=== PATIENT | female | born 1940 | race Caucasian/White ===

== ENCOUNTER → 2024-03-03 13:11 | Outpatient (REF) | payer MEDICARE, BC, SELFPAY | LOC: WDC 13:11 | PROVIDERS: ATTENDING PHYSICIAN Family Medicine | DX: Z12.31 Encounter for screening mammogram for malignant neoplasm of breast (principal); M81.0 Age-related osteoporosis without current pathological fracture | CPT/HCPCS: 77063; 77067; 77080 ==

== ENCOUNTER 2024-10-07 11:59 | Emergency (ER) | payer MEDICARE, SELFPAY ==
[2024-10-07 12:04] VITALS: BP 163/102
--- NOTE | 2024-10-07 12:10 | ED.GENMED ---
ED Provider Triage
<Anish Rascon PA-C - Last Filed: 10/07/24 12:11>
-
Patient seen by provider in Triage?: Seen in Triage
83-year-old female presents with lower abdominal pain that radiates to the back with associated urinary symptoms. She has a history of UTIs. She has a history of diverticulitis. She denies nausea or vomiting. No measurable fever. No chest pain
or shortness of breath
Patient appears stable through triage. Will start workup with basic labs urinalysis and CT with IV contrast of the abdomen and pelvis
Seen by healthcare provider at triage but warrants further assessment
History of Present Illness
<Anish Rascon PA-C - Last Filed: 10/07/24 12:11>
General
Chief Complaint: Urinary Symptoms
Time Seen by Provider: 10/07/24 17:17
<Evi Diane DO - Last Filed: 10/07/24 18:33>
History of Present Illness
History of Present Illness:
83-year-old female without significant past medical history presenting for lower abdominal pain and back pain. Patient reports symptoms for the past 5 days. Reports similar symptoms about a year ago at which time she had a urinary tract infection.
Denies urinary symptoms, however does feel some fogginess. Denies chest pain or difficulty breathing. Denies fever. Does also report history of diverticulitis. Denies additional acute medical complaints.
Past History
<Anish Rascon PA-C - Last Filed: 10/07/24 12:11>
Past History
ED Past Medical History: HTN and Other (Diverticulitis, IBS, Macular degeneration)
ED Past Surgical History: None
Social History
Tobacco: Non-smoker
Alcohol: None
Personal:
Living: with family
Phy Exam
<Evi Diane DO - Last Filed: 10/07/24 18:33>
Physical Exam
Physical Exam:
General: Well-appearing, no clinical signs of dehydration, nontoxic and in no acute distress
HEENT: protecting airway
Neck: appears supple
CV: Normal heart rate, regular rhythm
Resp: No accessory muscle use, no increased work of breathing
Abd: Soft and non-distended, mild generalized tenderness to lower abdomen without rebound or, no erythema, pulses and sensation intact
Neuro: alert, no focal neurologic deficit
: deferred
Rectal: deferred
Psych: Normal affect
Skin: Intact
Course
<Anish Rascon PA-C - Last Filed: 10/07/24 12:11>
Orders/Labs/Results
Orders:
Orders
10/07/24 12:08
CT Abd/pelvis W Iv Cont Urgent
Comment:
Reason For Exam: back pain, urinary symptoms
10/07/24 12:23
Complete Blood Count/With Diff Urgent
Comprehensive Metabolic Panel Urgent
Lipase Urgent
10/07/24 12:24
Urinalysis Reflex To Culture Urgent
Date Specimen was Collected: 10/07/24
Time Specimen was Collected: 12:23
Urine Microscopic Reflex Cult Urgent
Urine Culture Urgent
YOSEF Source: U
Specimen Description:
Date Specimen was Collected: 10/07/24
Time Specimen was Collected: 12:23
10/07/24 18:00
Cephalexin Monohydrate [Keflex] 500 mg PO NOW STA
10/07/24 18:01
Cephalexin Monohydrate [Keflex] 500 mg PO NOW STA
Abnormal Lab Results
10/07/24 10/07/24
12:23 12:24
BUN 23 H mg/dl
(7-17)
Glucose 100 H mg/dl
(70-99)
Leukocyte Esterase Rfl 1+ A
(Negative)
Urine Bacteria (Reflex) Few A
(Negative)
10/07/24 12:23
10/07/24 12:23
Vital Signs
Initial and Last Documented VS:
Initial Vital Signs
Temp Pulse Resp BP Pulse Ox
98.1 F 70 18 163/102 97
10/07/24 12:04 10/07/24 12:04 10/07/24 12:04 10/07/24 12:04 10/07/24 12:04
Last Documented Vital Signs
Temp Pulse Resp BP Pulse Ox
98.1 F 66 18 172/88 95
10/07/24 16:03 10/07/24 16:03 10/07/24 16:03 10/07/24 16:03 10/07/24 16:03
<Evi Diane, DO - Last Filed: 10/07/24 18:33>
Orders/Labs/Results
Orders:
Orders
10/07/24 12:08
CT Abd/pelvis W Iv Cont Urgent
Comment:
Reason For Exam: back pain, urinary symptoms
10/07/24 12:23
Complete Blood Count/With Diff Urgent
Comprehensive Metabolic Panel Urgent
Lipase Urgent
10/07/24 12:24
Urinalysis Reflex To Culture Urgent
Date Specimen was Collected: 10/07/24
Time Specimen was Collected: 12:23
Urine Microscopic Reflex Cult Urgent
Urine Culture Urgent
YOSEF Source: U
Specimen Description:
Date Specimen was Collected: 10/07/24
Time Specimen was Collected: 12:23
10/07/24 18:00
Cephalexin Monohydrate [Keflex] 500 mg PO NOW STA
10/07/24 18:01
Cephalexin Monohydrate [Keflex] 500 mg PO NOW STA
Abnormal Lab Results
10/07/24 10/07/24
12:23 12:24
BUN 23 H mg/dl
(7-17)
Glucose 100 H mg/dl
(70-99)
Leukocyte Esterase Rfl 1+ A
(Negative)
Urine Bacteria (Reflex) Few A
(Negative)
10/07/24 12:23
10/07/24 12:23
Vital Signs
Initial and Last Documented VS:
Initial Vital Signs
Temp Pulse Resp BP Pulse Ox
98.1 F 70 18 163/102 97
10/07/24 12:04 10/07/24 12:04 10/07/24 12:04 10/07/24 12:04 10/07/24 12:04
Last Documented Vital Signs
Temp Pulse Resp BP Pulse Ox
98.1 F 66 18 172/88 95
10/07/24 16:03 10/07/24 16:03 10/07/24 16:03 10/07/24 16:03 10/07/24 16:03
<Evi Diane DO - Last Filed: 10/07/24 18:33>
MDM/Problems Addressed
MDM/Problems Addressed:
83-year-old female presenting with lower abdominal pain lower back pain for a week. Vital signs are significant for mild hypertension.
On exam patient is well-appearing, resting comfortably, nontoxic and in no acute distress. On exam, no significant tenderness to the abdomen. No tenderness to the lower back. Patient had workup prior to my assessment, provider in triage. Patient
had laboratory analysis, urinalysis, CT abdomen and pelvis. Labs unremarkable, urine does show evidence of infection which could be contributing to patient's symptoms. Notes similar symptoms in the past and did have a urine infection.
Incidentally, noted to have fluid-filled thickening in the endometrial cavity, abnormal in the postmenopausal female. Do not suspect etiology of patient's pain, however will require interval follow-up with gynecology for rule out malignancy. Will
start patient on antibiotic, otherwise feel hemodynamically stable for discharge. Return precautions discussed and patient verbalized understanding
<Evi Davala, DO - Last Filed: 10/07/24 18:33>
*Critical Care Note
Total Time (30-74mins, 75-104mins- exclusive of procedures): Not Applicable
ED Attending Note
<Anish Rascon PA-C - Last Filed: 10/07/24 12:11>
-
Portions of this chart may have been created with voice recognition software.� Occasional wrong word or��sound alike� substitutions may have occurred due to the inherent limitations of voice recognition software.
Discharge Plan
Departure
Patient Disposition: Home (Routine Discharge)
Date of Disposition: 10/07/24
Time of Disposition: 18:14
Patient with high blood pressure during this ER visit?: Yes
Condition: Good
Discharge Problem:
Urinary tract infection, Abdominal pain
Instructions: Urinary Tract Infection, Adult (DC), BLOOD PRESSURE
Prescriptions:
New
cephalexin 500 mg capsule
500 mg PO Q12H 7 Days Qty: 14 0RF
No Action
Acidophilus
calcium carbonate [calcium] 500 MG tablet
500 mg PO DAILY
Enzymes,Digestive
1 tab PO DAILY
Multi Oil
1 tab PO DAILY
Women's Multi Capsule
1 tab PO DAILY
levofloxacin 500 MG tablet
500 mg PO DAILY Qty: 9 0RF
metronidazole 500 MG tablet
500 mg PO TID Qty: 29 0RF
hydrochlorothiazide 12.5 MG tablet
12.5 mg PO DAILY Qty: 30 0RF
sulfamethoxazole-trimethoprim [Bactrim DS] 800-160 mg tablet
1 tab PO BID Qty: 14 0RF
Referrals:
Liset Nelson DO [Active] -
UNKNOWN - PT NOT,INTERVIEWE [Family Provider] -
Activity Restrictions/Additional Instructions:
You were seen in the emergency department for abdominal pain
You were found to have a urinary tract infection. Additionally you had a CT scan of your abdomen that showed thickening of your endometrium, which is abnormal in a postmenopausal female. Recommendation is for outpatient gynecologic follow-up to
ensure no additional acute abnormality such as endometrial cancer. Please take your antibiotics as directed for your urine infection
Please follow-up closely with your primary care physician.
Return to the emergency department for any worsening of your symptoms, or any development of chest pain, difficulty breathing, abdominal pain with persistent vomiting and inability to tolerate food or liquid by mouth (concern for dehydration),
weakness, headache or confusion, fever greater than 100.4, or any additional symptoms that are concerning to you.
Thank you for choosing [facility].
Interventions
Interventions:
*Risk Screen - Suicide Last Done: 10/07/24 12:04
*General Assessment Last Done: 10/07/24 12:04
*ED COVID-19 Vaccine History Last Done: 10/07/24 12:04
Discharge Date and Time
Print Language: SPANISH
[2024-10-07 12:36] LABS: % Basophils 0.2 % (0-2); % Eosinophils 1.3 % (0-6); % Immature Granulocytes 0.2 % (0-0.5); % Lymphocytes 25.4 % (20.5-51.1); % Monocytes 7.5 % (1.7-9.3); % Neutrophils 65.4 % (42.2-75.2); Absolute Eosinophils 0.1 10^3/uL (0-0.7); Absolute Lymphocytes 1.6 10^3/uL (1.2-3.4); Absolute Monocytes 0.5 10^3/uL (0.1-0.6); Hematocrit 40.8 % (37.0-47.0); Hemoglobin 13.9 g/dL (12.0-16.0); Mean Corp Hgb Conc. 34.1 g/dL (33.0-37.0); Mean Corpuscular Hgb 30.4 pg (27.0-31.0); Mean Corpuscular Volume 89.3 fL (81.0-99.0); Nucleated Red Blood Cells % 0 %; Platelet Count 202 10^3/uL (130-400); Red Blood Cell Count 4.57 10^6/uL (4.20-5.40); Red Cell Dist. Width 13.1 % (11.5-14.5); White Blood Cell Count 6.1 10^3/uL (4.8-10.8)
[2024-10-07 12:54] LABS: ALT (SGPT) 23 U/L (0-35); AST (SGOT) 28 U/L (14-36); Alkaline Phosphatase 87 U/L (38-126); Blood Urea Nitrogen 23 mg/dl (7-17); Calcium 9.3 mg/dl (8.4-10.2); Carbon Dioxide 28 mmol/L (22-30); Chloride 101 mmol/L (98-107); Glucose 100 mg/dl (70-99); Lipase 80 U/L (23-300); Potassium 4.4 mmol/L (3.5-5.1); Sodium 138 mmol/L (135-145); Total Bilirubin 0.9 mg/dl (0.2-1.3); Total Protein 6.4 g/dl (6.3-8.2); eGFR > 60.00
[2024-10-07 13:16] LABS: Urine Albumin Negative (Neg - Trace); Urine Bilirubin Negative (Negative); Urine Character Clear (Clear); Urine Color Yellow; Urine Glucose Negative (Negative); Urine Ketone Negative (Negative); Urine Leukocyte 1+ (Negative); Urine Nitrite Negative (Negative); Urine Occult Blood Negative (Negative); Urine Specific Gravity 1.025 (<1.030); Urine Urobilinogen Negative (Neg - 1+)
[2024-10-07 14:50] LABS: Urine Squamous Cell 0-2 /LPF (Few)
[2024-10-07 14:51] LABS: Urine Bacteria Few (Negative); Urine Red Blood Cell 0-2 /HPF (0-2)
[2024-10-07 16:03] VITALS: BP 172/88
[2024-10-07] MEDS: KEFLEX 500 MG PO ×2 (18:25→18:26)
== END 2024-10-07 18:35 | disposition home or self-care (01) ==
LOC: EMR 11:59
PROVIDERS: Physician Assistant; EMERGENCY PHYSICIAN Student in an Organized Health Care Education/Training Program
DX: N39.0 Urinary tract infection, site not specified (principal); R93.89 Abnormal findings on diagnostic imaging of other specified body structures; M54.50 Low back pain, unspecified; I10 Essential (primary) hypertension; K58.9 Irritable bowel syndrome, unspecified
CPT/HCPCS: 99284; 74177; 80053; 81003; 81015; 83690; 85025; 87086; Q9967

== ENCOUNTER → 2024-12-06 14:03 | Outpatient (REF) | payer MEDICARE, BC, SELFPAY | LOC: RAD 14:03 | PROVIDERS: ATTENDING PHYSICIAN Obstetrics & Gynecology; FAMILY PHYSICIAN Family Medicine | DX: R93.89 Abnormal findings on diagnostic imaging of other specified body structures (principal) | CPT/HCPCS: 76830; 76856 ==

== ENCOUNTER 2025-01-24 18:00 | Emergency (ER) | payer MEDICARE, BC, SELFPAY ==
[2025-01-24 18:03] VITALS: BP 185/88
[2025-01-24 19:38] LABS: % Basophils 0.2 % (0-2); % Eosinophils 1.3 % (0-6); % Immature Granulocytes 0.2 % (0-0.5); % Lymphocytes 24.7 % (20.5-51.1); % Monocytes 6.5 % (1.7-9.3); % Neutrophils 67.1 % (42.2-75.2); Absolute Eosinophils 0.1 10^3/uL (0-0.7); Absolute Lymphocytes 1.6 10^3/uL (1.2-3.4); Absolute Monocytes 0.4 10^3/uL (0.1-0.6); Absolute Neutrophils 4.2 10^3/uL (1.4-6.5); Hematocrit 42.8 % (37.0-47.0); Mean Corp Hgb Conc. 32.7 g/dL (33.0-37.0); Mean Corpuscular Hgb 29.9 pg (27.0-31.0); Mean Corpuscular Volume 91.5 fL (81.0-99.0); Mean Platelet Volume 10.2 fL (7.4-10.4); Nucleated Red Blood Cells % 0 %; Platelet Count 206 10^3/uL (130-400); Red Blood Cell Count 4.68 10^6/uL (4.20-5.40); Red Cell Dist. Width 13.3 % (11.5-14.5); White Blood Cell Count 6.3 10^3/uL (4.8-10.8)
[2025-01-24 20:00] LABS: NT-proBNP 371 pg/ml
[2025-01-24] MEDS: ADACEL 0.5 ML IM (22:10)
--- NOTE | 2025-01-24 22:38 | ED.GENMED ---
History of Present Illness
General
Chief Complaint: Fall
Source: patient
Exam Limitations: none
Time Seen by Provider: 01/24/25 18:34
Nursing documentation reviewed up to this point in time: agreed with
History of Present Illness
History of Present Illness:
Patient to ED s/p fall. States she was walking into bank and tripped. Hit face on pavement. No LOC. She has an abrasion to her forehead. Brought to ED by son for eval. Incident occurred today.
Past History
Past History
ED Past Medical History: HTN and Other (Diverticulitis, IBS, Macular degeneration)
ED Past Surgical History: None
Social History
Tobacco: Non-smoker
Alcohol: None
Personal:
Living: with family
Review of Systems
Review of Systems
Allergies reviewed?: Yes
All Other Systems: ROS reviewed and negative except as documented in HPI and ROS
Constitutional: Reports no symptoms
EENT: Reports no symptoms
Respiratory: Reports no symptoms
Cardiac: Reports no symptoms
ABD/GI: Reports no symptoms
: Reports no symptoms
Musculoskeletal: Reports no symptoms
Skin: Reports other (abrasion to forehead)
Neurological: Reports no symptoms
Psychiatric: Reports no symptoms
Phy Exam
General Physical Exam
General Presentation: well appearing and no apparent distress
General age: appears stated age
General Skin: warm and dry
General Habitus: normal
General Mental: alert
Cardiovascular Exam
Cardiovascular Exam: regular rate/rhythm and no edema
Neurological Exam
Neurological Exam: alert, oriented x3, CN II-XII intact, no motor deficits, no sensory deficits, speech normal and normal gait
[place] Coma Scale
Eye Opening: Spontaneous
Verbal Response: Oriented
Motor Response: Obeys Commands
GCS Total Score: 15
Musculoskeletal Exam
Musculoskeletal Exam: full ROM, neuro vasc intact and other (Full nonpainful ROM to head and neck.)
Skin Exam
Skin Exam: normal color, warm/dry and no rash
Psychiatric Exam
Psychiatric Exam: normal mood/affect
Course
Orders/Labs/Results
Orders:
Orders
01/24/25 18:54
CT Head W/o Iv Contrast Urgent
Comment:
Reason For Exam: fall
01/24/25 18:57
Complete Blood Count/With Diff Urgent
NT-proBNP Urgent
01/24/25 21:57
Tetanus/Diphth/Acelpertussis [Adacel] 0.5 ml IM .ONCE ONE
Abnormal Lab Results
01/24/25
18:57
MCHC 32.7 L g/dL
(33.0-37.0)
01/24/25 18:57
Vital Signs
Initial and Last Documented VS:
Initial Vital Signs
Temp Pulse Resp BP Pulse Ox
98.6 F 72 18 185/88 97
01/24/25 18:03 01/24/25 18:03 01/24/25 18:03 01/24/25 18:03 01/24/25 18:03
Last Documented Vital Signs
Temp Pulse Resp BP Pulse Ox
98.6 F 72 18 185/88 97
01/24/25 18:03 01/24/25 18:03 01/24/25 18:03 01/24/25 18:03 01/24/25 18:03
*Radiology
Radiology exam reviewed: radiology read reviewed
*Pulse Oximetry
Patient hypoxic: no
*Critical Care Note
Total Time (30-74mins, 75-104mins- exclusive of procedures): Not Applicable
ED Attending Note
-
Portions of this chart may have been created with voice recognition software.� Occasional wrong word or��sound alike� substitutions may have occurred due to the inherent limitations of voice recognition software.
Discharge Plan
Departure
Patient Disposition: Home (Routine Discharge)
Date of Disposition: 01/24/25
Time of Disposition: 21:42
Patient with high blood pressure during this ER visit?: No
Condition: Good
Covid-19: Not Applicable
Discharge Problem:
Head injury
Instructions: Head Injury in Adults (DC), Contusion (DC), Preventing falls in adults
Prescriptions:
No Action
multivitamin Tablet
1 tab PO BID
digestive enzymes Capsule
2 cap PO BID
hydrochlorothiazide 12.5 mg Tablet
12.5 mg PO DAILY
PreserVision AREDS-2 250-90-40-1 mg Capsule
1 tab PO BID
magnesium 250 mg Tablet
250 mg PO DAILY
carboxymethylcellulose sodium [Refresh] 1 % Drops, Liquid Gel
1 drp OPHTHALMIC (EYE) BID
calcium 26-vit D3-magnesium 15 167 mg calcium- 1.67 mcg-83 mg Capsule
2 cap PO BID
Fish Oil
2 cap PO DAILY
Probiotic
50 billion cells PO DAILY
Referrals:
Aric Sheridan MD [Family Provider] - Tomorrow
Interventions
Interventions:
*Risk Screen - Suicide Last Done: 01/24/25 18:05
*General Assessment Last Done: 01/24/25 18:05
*Neglect/Abuse Screening Last Done: 01/24/25 18:05
*ED COVID-19 Vaccine History Last Done: 01/24/25 18:05
*Nursing Disposition Last Done: 01/24/25 22:11
ED- Neurological Assessment Last Done: 01/24/25 19:37
ED-Skin Assessment Last Done: 01/24/25 19:37
Discharge Date and Time
Discharge Date/Time: 01/24/25 22:11
Print Language: ARGENTINE
== END 2025-01-24 22:11 | disposition home or self-care (01) ==
LOC: EMR 18:00
PROVIDERS: Nurse Practitioner; EMERGENCY PHYSICIAN Emergency Medicine; FAMILY PHYSICIAN Family Medicine
DX: S00.81XA Abrasion of other part of head, initial encounter (principal); W01.0XXA Fall on same level from slipping, tripping and stumbling without subsequent striking against object, initial encounter; Y93.01 Activity, walking, marching and hiking; I10 Essential (primary) hypertension; Z23 Encounter for immunization
CPT/HCPCS: 90471; 99284; 70450; 83880; 85025; 90715

== ENCOUNTER → 2025-01-31 14:43 | Outpatient (REF) | payer MEDICARE, BC, SELFPAY | LOC: RAD 14:43 | PROVIDERS: ATTENDING PHYSICIAN Ophthalmology Retina Specialist; FAMILY PHYSICIAN Family Medicine | DX: G45.3 Amaurosis fugax (principal) | CPT/HCPCS: 36415; 85652; 86140; 93880 ==

== ENCOUNTER 2025-02-08 06:08 | Day surgery (SDC) | payer MEDICARE, BC, SELFPAY ==
[2025-01-31 13:07] VITALS: BMI 35.0
[2025-02-08] VITALS (9 sets, daily range): BP systolic 150–179; BP diastolic 70–79; BMI 35.0
[2025-02-08] MEDS: NEURONTIN 100 MG PO (06:57)
[2025-02-08] MEDS: TYLENOL 1000 MG PO (06:57)
[2025-02-08] MEDS: NORMOSOL-R/PLASMALYTE-A 1000 IV (06:57)
--- NOTE | 2025-02-08 12:54 | PTCARENOTE ---
pt left to home , asked upon discharge if she can take baths at home, Dr Nelson texted this question, and this RN called pt at home, left voicemail at her home number that she must wait 2 weeks till any baths, only showers till then, instructed to
call back to [facility] or f/u with Dr Nelson with any questions. YANDEL Paiz
== END 2025-02-08 11:30 | disposition home or self-care (01) ==
LOC: SDS 06:08
PROVIDERS: ATTENDING PHYSICIAN Obstetrics & Gynecology; FAMILY PHYSICIAN Family Medicine
DX: C54.1 Malignant neoplasm of endometrium (principal)
CPT/HCPCS: 58558; 88305; 86850; 86900; 86901; 88341; 88342; 88360

== ENCOUNTER → 2025-03-10 13:15 | Outpatient (REF) | payer MEDICARE, BC, SELFPAY | LOC: RAD 13:15 | PROVIDERS: ATTENDING PHYSICIAN Obstetrics & Gynecology Gynecologic Oncology; FAMILY PHYSICIAN Family Medicine; REFERRING PHYSICIAN Obstetrics & Gynecology | DX: C54.1 Malignant neoplasm of endometrium (principal); N95.0 Postmenopausal bleeding; N39.0 Urinary tract infection, site not specified | CPT/HCPCS: 71260; 74177; Q9967 ==

== ENCOUNTER → 2025-03-24 13:46 | Outpatient (REF) | payer MEDICARE, BC, SELFPAY | LOC: SDSPAT 13:46 | PROVIDERS: ATTENDING PHYSICIAN Obstetrics & Gynecology Gynecologic Oncology; FAMILY PHYSICIAN Family Medicine | DX: C54.1 Malignant neoplasm of endometrium (principal) | CPT/HCPCS: 36415; 86850; 86900; 86901 ==

== ENCOUNTER 2025-04-04 06:18 | Day surgery (SDC) | payer MEDICARE, BC, SELFPAY ==
[2025-03-24 14:23] VITALS: BMI 35.3
--- NOTE | 2025-04-02 21:38 | W.CON.GYNONC ---
Consultation
-
Date/Time Consultation Performed: 04/02/2025
Performing Provider: Anthony Sylvester
Reason for Consultation: Pre op H&P
Chief Complaint
-
Endometrial Cancer
History of Present Illness
83�year�old�woman�referred�to�me�for�new�diagnosis�of�endometrial�cancer.�She�had�presented�to�the�emergency�room�for�lower abdominal�pain,�history�of�diverticulitis,�ultrasound�of�pelvis�eventually�was�done�March�1�which�shows�uterus�6.6�cm.
Endometrium�was�distended�up�to�17�mm�filled�with�echogenic�complex�fluid,�ovaries�were�not�well�visualized�on�the�right�side�but
left�ovary�was�2.3�cm.�She�was�taken�to�the�operating�room�May�1,�endometrial�mass�or�curetting�revealed�endometrial
carcinoma,�preliminary�diagnosis�is�unequivocal�for�histology�but�consideration�can�be�given�to�endometrioid�versus�clear�cell
histology.�There�is�diffuse�ER�positivity�which�would�support�an�endometrioid�histology�and�p53�stains�is�wild�type.�Mismatch�repair testing�shows�loss�of�MLH1�and�PMS2.
Her�medications�include�calcium,�hydrochlorothiazide,�magnesium,�multivitamin,�PreserVision�and�probiotic Past�medical�history�hypertension�and�macular�degeneration
Past�surgical�history�D&C
Social�history�denies�tobacco,�drug�or�alcohol�use Patient�is�,��fell�last�year�and�had�intracranial�bleeding
Allergies�penicillin
Medical History
Allergies
Allergies reflect [facility]
Iodinated Contrast Media Allergy (Verified 03/29/25 15:30)
severe uncontrollable diarrhea for several days
Penicillins Allergy (Verified 03/29/25 15:24)
Unknown, as child
Physical Exam
Physical Exam
Pelvic�Examination: External�normal�labia,�urethra,�anus.� Vagina:�Normal�mucosa.� Cervix:�normal�appearance,�no�discharge.� Uterus:�normal�size.� Adnexa:�No�pelvic�mass.� RVE:�no�masses�or�nodularity
General:�Well�developed,�well�nourished�patient.�In�no�acute�distress. Neck:�No�thyromegaly.�No�cervical�lymphadenopathy. Lungs:�Clear�to�auscultation.�Good�air�movement�bilaterally. Cardiac:�Regular�rate.�Regular�rhythm.�No�murmurs�appreciated.
Right�Breast:�No�masses�or�dimpling.�No�nipple�discharge. Left�Breast:�No�masses�or�dimpling.�No�nipple�discharge. Abdomen:�Abdomen�is�soft.�Non�tender�to�palpation.�Non�distended. Extremities:�No�edema.
Hematologic/Lymphatic:�No�palpable�lymphadenopathy. Musculoskeletal:�Normal�range�of�motion.�Strength�and�Tone�are�normal. Skin:Non�jaundiced.�No�petechia.�No�purpura. Neurologic:�Speech�is�fluent.�Normal�gait�and�station.�Cranial�nerves�intact
Results
-
Diagnostic Imaging Report
SignedOrder #:[id number]
Exams: CT Chest/abd/pel W Iv Cont
Technique: CT chest, abdomen, and pelvis With intravenous and oral contrast.
INDICATION: Malignant neoplasm of the endometrium.
COMPARISON: CT abdomen and pelvis 10/07/24.
FINDINGS:
CHEST:
Right lung nodules:
Small low-attenuation nodule along the inferior margin of the right major fissure has remained stable, consistent with benign etiology.
Inferiorly in the subpleural right middle lobe lateral segment, there is mild focal pleuroparenchymal scarring which has also been noted previously.
Superiorly in the lateral segment the right middle lobe there is a peripheral 2.8 mm nodule (image 31 series 701).
In the anterolateral right upper lobe there is a small subpleural nodule measuring 2.3 mm (image 15)
Additional anterolateral right upper lobe pulmonary nodule measuring 3.3 mm (image 21).
In the anterior right upper lobe there is a 1.5 mm subpleural nodule (image 24).
Small groundglass nodule measuring 5 mm along the right minor fissure (image 31).
Left lung nodules:
In the superior segment of left lower lobe, faint groundglass nodular opacity measuring 9 mm (image 24 series 701).
In the anterolateral left upper lobe there is a tiny 1.5 mm subpleural nodule (image 19).
Minor linear parenchymal density suggesting scarring in the lateral aspect of the left upper lobe (image 23 through 26 series 701).
No pleural or pericardial effusion. No pneumothorax.
No hilar or mediastinal mass or enlarged adenopathy.
Dense calcification of the mitral annulus. Mild to moderate calcification of the aortic valve. Mild coronary artery calcification.
Nonspecific mild thyroid nodularity with at least one 10 mm nodule in each lobe, and mild thyroid substernal extension.
ABDOMEN:
Liver: No intrahepatic space-occupying lesion.
Gallbladder: Large volume cholelithiasis. No CT evidence of acute cholecystitis.
Bile duct: No dilatation.
Pancreas: Fatty infiltration, most pronounced in the head of the pancreas.
Spleen: Normal in size.
Adrenal glands: No mass.
Kidneys: No hydronephrosis or obstructive uropathy. Tiny cyst in the upper pole left kidney.
Retroperitoneum: No mass or adenopathy. No aortic aneurysm.
Peritoneum: No upper abdominal ascites or inflammatory soft tissue stranding. No free air. No peritoneal mass, nodule, or soft tissue stranding to suggest peritoneal carcinomatosis.
Bowel: Moderate to advanced sigmoid diverticulosis without acute diverticulitis. Mild diverticulosis of the descending colon.
Appendix: Normal.
Pelvis:
No ascites. No adenopathy. Endometrial thickening measuring up to 1.5 cm, improved.
Osseous review:
No compression deformity. Facet arthrosis. Grade 1-2 spondylolisthesis of L4 relative to L5. Degenerative disc disease.
IMPRESSION:
Multiple bilateral tiny pulmonary nodules are noted, some which can be seen on prior CT examination of the abdomen and pelvis from 10/07/24, and have remained stable. Others are outside of the previous image field. Tiny solid nodules measure 3.3 mm
or less. There is a 9 mm groundglass nodule in the superior segment of left lower lobe. Nonspecific, though probably benign. Recommend follow-up in 6 months.
No anatomic evidence to suggest metastatic disease within the abdomen or pelvis.
Diverticulosis without acute diverticulitis.
Cholelithiasis without CT evidence of acute cholecystitis.
Endometrial thickening measuring up to 1.5 cm, having improved since prior examination.
Electronically signed by Danish Elizondo MD, 03/14/2025 8:06 AM
[employer] Dose Report: Up-to-date CT equipment and radiation dose reduction techniques were employed. CTDIvol: 14.7 mGy. DLP: 634 mGy-cm.
Dictated By: Danish Elizondo MD.
Dictated Date & Time: 03/13/251654
Impression / Plan
-
I�spoke�to�the�patient�and�her�son�who�was�present�in�the�office�with�her,�I�explained�the�diagnosis�of�endometrial�cancer,�risk
factors�associated�with�this�and�typical�presentation.�I�have�reviewed�her�pathology�results�from�D&C,�grading�of�her�cancer�is
unclear�at�this�time.�Previous�imaging�performed�7�months�ago�does�not�reveal�any�obvious�evidence�of�metastatic�disease.�Her clinical�examination�today�is�normal.�She�wants�to�try�to�have�her�surgery�sometimes�in�[place].
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
Baseline�CT�of�chest�abdomen�and�pelvis�will�be�done�with�IV�and�oral�contrast Patient�needs�to�visit�with�her�primary�care�physician�for�medical�clearance�preoperatively
I�have�recommended�treatment�with�robotic�assisted�total�laparoscopic�hysterectomy�bilateral�salpingo�oophorectomy�and�staging with�sentinel�lymph�node�excision�at�the�same�time.
We�discussed�risks�for�surgery�including�infection�bleeding�injury�to�adjacent�organs�DVT�pulmonary�embolism�and�cardiovascular
complications.�She�understands�that�she�will�meet�me�2�weeks�following�the�surgery�to�go�over�the�results�and�discuss�whether she�requires�any�postoperative�adjuvant�treatments.�She�understands�that�in�the�range�of�recommendations�may�include
observation�versus�radiation�versus�chemotherapy.
[2025-04-04] VITALS (16 sets, daily range): BP systolic 119–170; BP diastolic 63–86; BMI 35.3
[2025-04-04] MEDS: CELEBREX 200 MG PO (08:42)
[2025-04-04] MEDS: NEURONTIN 300 MG PO (08:42)
[2025-04-04] MEDS: TYLENOL 1000 MG PO (08:42)
[2025-04-04] MEDS: HEPARIN 5000 UNITS SC (08:42)
[2025-04-04] MEDS: NORMOSOL-R/PLASMALYTE-A 1000 IV (08:57)
[2025-04-04] MEDS: EMEND 40 MG PO (09:02)
--- NOTE | 2025-04-04 12:56 | OR.RPT ---
Operative Report
Operative Report
Date of procedure: April 04, 2025
Primary Surgeon: Anthony Parker
Assisting Surgeon: Robson Gomes PA-C
Pre-op Diagnosis: Endometrial cancer
Post-op Diagnosis: Same
Procedure Performed: Robotic assisted total laparoscopic hysterectomy, bilateral salpingo-oophorectomy with pelvic washings
Injection of cervix with ICG dye, bilateral, for mapping and identification of sentinel lymph nodes
Robotic assisted laparoscopic right pelvic lymphadenectomy, left pelvic sentinel lymphadenectomy
Tap block
Anesthesia Type: General Endotracheal intubation
Specimen / Cultures: Uterus and cervix with bilateral tubes and ovaries, pelvic washings, right pelvic lymph nodes, left external iliac vein sentinel lymph node, left obturator sentinel lymph node
Estimated Blood Loss: 50 cc
Complications: None
Operative Findings: Inspection of the abdomen reveals normal liver spleen stomach right and left diaphragms, omentum and right and left paracolic gutters are within normal limits. Uterus and cervix are unremarkable, tubes and ovaries are normal.
Portions of the large and small bowel that were visualized are within normal limits. There are filmy adhesions in the posterior cul-de-sac between the cervix and left ovary with the adjacent peritoneum, there was a band of adhesion of colonic
epiploica to the bladder as well as additional epiploica adherent to loop of small bowel
Operative procedure in detail: This patient was taken to the operating room and placed in supine position, general anesthesia was administered and she was intubated without any difficulty. She was placed in lithotomy position using yellowfin
stirrups. Her arms were wrapped in foam after placement of IVs in place along the patient's sides and protected,
Was placed timeout procedure was carried out and she received appropriate antibiotics she was prepped in the abdomen perineum and vagina and draped. Orona catheter was placed under sterile conditions into the bladder, cervix was visualized and
grasped on the anterior lip with single-tooth tenaculum ICG dye was injected in the cervix at 3 and 9:00 positions at 5 and 10 mm deep stations for a total of 5 to 6 cc. Once this was completed the cervical canal was dilated, uterine manipulator
visual educator type with 3.0 ATILIO ring was placed around the cervix and vaginal occluder was insufflated.
Veress needle was inserted in the abdomen just below the left subcostal margin and insufflation with CO2 gas was created up to pressure of 15 mmHg, 8 mm excised robotic ports were inserted 25 cm cephalad to the symphysis pubis along the midline
under direct visualization right and left 8 mm ports were placed in upper quadrants and lateral abdomen. The patient was placed in 28 degree lithotomy position and robotic system was docked. Tap block was performed with combination of ropivacaine
and Decadron injected 2 fingerbreadths below the lateral aspect of subcostal margin
as well as mid lateral abdomen
Right and left round ligaments were sealed and divided anterior and posterior leaves of the broad ligament were dissected open adhesions of the epiploica of the colon to bladder and small bowel was sharply taken down without any use of energy. We
went ahead and identified the course of ureter in the retroperitoneum, both IP ligaments were isolated sealed 3 times and divided tubes and ovaries were left attached to the uterus we used the firefly system on the left side were able to easily
mapped a external iliac vein and the distal aspect as well as the obturator fossa lymph node that was removed and submitted, on the right side the mapping failed and a full lymphadenectomy was performed removing the entire lymphatic tissue between
bifurcation of common iliac vessels down to the level of deep circumflex iliac artery and vein and additional lymph nodes along the obturator fossa anterior to the obturator nerve. There was no injury to blood vessels nerves or ureter. Bladder
flap was sharply developed and advanced below the cervicovaginal junction uterine arteries were skeletonized sealed and divided uterine vessels followed by cardinal ligaments followed by uterine sacral ligaments were sealed and divided we made an
incision circumferentially over the ATILIO ring in the uterus specimen with tubes and ovaries were removed vaginally as well as the specimen containing all right lymph nodes in Endo Catch bag. The vaginal cuff was repaired at both apices incorporating
uterosacral ligaments for support with [id number] sutures of 0 Vicryl a V-Loc suture was used then in a running fashion starting from right to the left side and back to the right side in 2 layers incorporating uterosacral ligaments for support
and a good closure was accomplished. We irrigated the pelvis copiously and all pedicles were hemostatic pneumoperitoneum was released robotic instruments were undocked and all instruments were removed the incisions on the abdomen for laparoscopic
ports were closed with 4-0 Monocryl in a subcuticular fashion Dermabond was applied to all incisions. Orona catheter was removed the vagina was irrigated and there was no lacerations and bleeding. Counts of laps instruments and needle was correct
x 2 I was present and scrubbed for entire procedure as dictated above. Patient returned back to recovery room stable awake and extubated condition.
[2025-04-04] MEDS: DILAUDID 0.25 MG IV ×3 (13:47→15:01)
[2025-04-04] MEDS: NSS 1000 IV (16:01)
[2025-04-04] MEDS: ZOFRAN 4 MG IV (16:30)
--- NOTE | 2025-04-04 16:59 | PTCARENOTE ---
Pt arrived 1540 from PACU. VSS. 94% 2LO2. AAOX3. IVF infusing. oriented to room and call chacko. bed locked and in lowest position. head to toe assessment complete. family at bedside.
[2025-04-04] MEDS: LOVENOX 40 MG SC (17:20)
[2025-04-04] MEDS: MOTRIN PO (19:16)
[2025-04-04] MEDS: TYLENOL PO (19:16)
[2025-04-04] MEDS: COLACE PO (21:05)
[2025-04-04] MEDS: MOTRIN 400 MG PO (23:19)
[2025-04-04] MEDS: TYLENOL 650 MG PO (23:19)
[2025-04-05 03:05] VITALS: BP 122/63
[2025-04-05] MEDS: MOTRIN 400 MG PO ×3 (05:47→17:27)
[2025-04-05] MEDS: TYLENOL 650 MG PO ×3 (05:48→17:28)
[2025-04-05 07:43] LABS: Hematocrit 36.6 % (37.0-47.0); Hemoglobin 12.3 g/dL (12.0-16.0); Mean Corp Hgb Conc. 33.6 g/dL (33.0-37.0); Mean Corpuscular Volume 89.7 fL (81.0-99.0); Nucleated Red Blood Cells % 0 %; Platelet Count 180 10^3/uL (130-400); Red Cell Dist. Width 13.2 % (11.5-14.5)
--- NOTE | 2025-04-05 07:49 | W.PN.GYNONC ---
Today's Communication
-
dc home today
Impression / Plan
-
POD1 RA TLH BSO, LND
I reviewed her procedure and operative findings
she meets her milestomes and goals post op
labs are good
regular diet
stop IV fluids
i reviewed dc instructions
plan for dc home this afternoon after case management and PT eval
Subjective / Interval History
-
POD1
she slept well
denies N/V
has pain across upper abdomen over port sites
seem somfortable
voiding ok
Objective Data
-
Lab Results:
04/05/25 07:15
Physical Exam
Vital Signs / I&O
Vitals
Temp Pulse Resp BP Pulse Ox
98.1 F 77 18 122/63 96
04/05/25 03:05 04/05/25 03:05 04/05/25 03:05 04/05/25 03:05 04/05/25 03:05
I&O
04/03/25 04/04/25 04/05/25 04/06/25
06:59 06:59 06:59 06:59
Intake Total 990 / 990
Output Total 750 / 750
Balance 240 / 240
Physical Exam
General: No Apparent Distress and Comfortable
HEENT: Normocephalic
Respiratory: Clear and Non Labored Respirations
Cardiac: S1/S2 and Regular Rhythm
Musculoskeletal: No Edema
Skin: Warm and Dry
Neuro: Awake, Alert and Oriented
Psych: Calm
Data Reviewed
-
Lab Data: Labs Reviewed
[2025-04-05 07:50] VITALS: BP 123/54
[2025-04-05 08:06] LABS: ALT (SGPT) 33 U/L (0-35); AST (SGOT) 39 U/L (14-36); Albumin 3.4 g/dl (3.5-5.0); Alkaline Phosphatase 77 U/L (38-126); Blood Urea Nitrogen 20 mg/dl (7-17); Calcium 8.9 mg/dl (8.4-10.2); Carbon Dioxide 24 mmol/L (22-30); Chloride 108 mmol/L (98-107); Estimated Creatinine Clearance 42 ml/min; Glucose 130 mg/dl (70-99); Potassium 3.8 mmol/L (3.5-5.1); Sodium 137 mmol/L (135-145); Total Protein 5.6 g/dl (6.3-8.2); eGFR 55.90
[2025-04-05] MEDS: ORETIC 12.5 MG PO (08:07)
[2025-04-05] MEDS: COLACE PO (08:08)
[2025-04-05 09:20] VITALS: BP 137/63; PULSE 70; O2SAT 95
--- NOTE | 2025-04-05 09:32 | CM ---
CM following re: discharge planning.
Reviewed pt's chart, met with pt.
Pt is an 84 year old female, admitted with OBS status and primary dx of POD1 RA TLBerkley BSO, LND. OBS status explained to the pt, pt expressed her understanding, [facility] letter signed, placed on chart, pt has a copy.
Pt reports she lives with disabled son, former addict, has 2 sons who is former addict also. Pt reports she has grandson who suffers pain medications addiction and his daughter who prescribed pain killer is in assisted. Pt reports her son she lives in
has [facility] at home [facility] and she is his caregiver. 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
Discharge order noted. Pt is aware and she stated her son Mauricio will transport her hoe after dinner.
PT and OT evaluations note- Home PT/OT recommended. Pt is aware, expressed her agreement. [facility] choices given. Pt preferred [facility]. A referral to [facility] made.
Please fax discharge instructions to [facility] at [phone].
PCP: Aric Sheridan
Pharmacy: [facility] [place]
D/C plan: home with [facility] and family support. Son Mauricio to transport.
--- NOTE | 2025-04-05 10:57 | VNURNOTE ---
Home Health Liaison met with patient at bedside to discuss [facility] nurse/therapy, visits, schedule and homebound status. Patient is agreeable and understands that visits at home will be 2-3 x per week to assess and teach medical management.
Patient is aware that [facility] will contact them for start of care in 1-2 days after discharge from .
[facility] referral completed in [facility] Port.
[2025-04-05 11:20] VITALS: BP 117/62
--- NOTE | 2025-04-05 13:11 | PTCARENOTE ---
Pt ambulating independently in the room, gait steady. Pt c/o pain but declining PRN pain medications, pt agreeable to scheduled tylenol and ibuprofen. Per pt pt was told by she could stay all day today so she will not be leaving until 8 pm
tonight. Care remains ongoing.
[2025-04-05] MEDS: NSS IV (13:37)
[2025-04-05] MEDS: ROXICODONE 5 MG PO (15:27)
[2025-04-05] MEDS: COLACE 100 MG PO ×2 (15:27→19:42)
[2025-04-05 15:30] VITALS: BP 148/76
[2025-04-05] MEDS: LOVENOX 40 MG SC (17:28)
[2025-04-05 19:30] VITALS: BP 129/66
--- NOTE | 2025-04-05 21:12 | PTCARENOTE ---
Reviewed discharge instructions and medications w/ pt. Answered all questions. Pt verbalized understanding.
== END 2025-04-05 22:15 | disposition home or self-care (01) ==
LOC: SDS 06:18
PROVIDERS: ATTENDING PHYSICIAN Obstetrics & Gynecology Gynecologic Oncology
DX: C54.1 Malignant neoplasm of endometrium (principal); D25.9 Leiomyoma of uterus, unspecified; N83.8 Other noninflammatory disorders of ovary, fallopian tube and broad ligament; N83.292 Other ovarian cyst, left side; N83.291 Other ovarian cyst, right side
CPT/HCPCS: 58571; 38900; 38570; 80053; 85025; 88112; 88307; 88309; 88342; 97116; 97162; 97530; G0378

== ENCOUNTER 2025-08-17 05:49 | Observation (INO) | payer MEDICARE, BC, SELFPAY ==
[2025-08-17] VITALS (10 sets, daily range): BP systolic 122–201; BP diastolic 59–83; PULSE 71; O2SAT 97–98; BMI 34.9; BMI 34.1
--- NOTE | 2025-08-17 02:35 | ED.GENMED ---
History of Present Illness
General
Chief Complaint: Fall
Time Seen by Provider: 08/17/25 02:31
History of Present Illness
History of Present Illness:
CHIEF COMPLAINT(S)
Fall with head trauma and left-sided pain.
HISTORY OF PRESENT ILLNESS
The patient is an 84-year-old female who presented after experiencing a fall. She reported becoming confused in the hallway and subsequently fell down the steps, impacting the left side of her body. The patient complained of tenderness on the left
side of her head and described her neck as being stiff with pain localized to the left side. She noted that all her pains are concentrated on her left side, including the left arm, which is difficult to move without discomfort. While she verbalized
concern about the possibility of a broken collarbone, she denied any abdominal pain, noting that most pain is localized to her upper body.
PAST MEDICAL AND SURGICAL HISTORY
The patient has a history of uterine cancer and underwent cancer surgery this past summer, followed by chemotherapy. Additionally, she has experienced several urinary tract infections attributed to the cancer.
PHYSICAL EXAM
General: Alert, conscious, and oriented throughout the examination.
Skin: Laceration to mid left mauro along with surrounding skin avulsion noted
Head: Tenderness on the left side without any visible lacerations.
Neck: Cervical collar in place, there is mild midline C-spine tenderness
Eye, Nose, Mouth, and Throat: Oral mucosa moist.
Gastrointestinal: No abdominal tenderness was reported.
Musculoskeletal: Severe tenderness noted in the left clavicular region with suspected movement. Moderate tenderness diffusely to the left leg below the knee.
Neurological: No focal neurological deficits observed.
Back: There is no midline T or L-spine tenderness; there is no CVA tenderness
PROBLEM LIST
Acute Problems:
1. Fall with head trauma.
2. Left-sided pain and stiffness.
3. Suspected clavicle injury.
Chronic problems:
History of uterine cancer and related complications.
PLAN
1. Administered Tylenol for mild pain management as preferred by the patient.
2. Ordered a series of X-rays and a CT scan to assess the head and potential left-sided injuries.
3. Conduct blood work to evaluate for possible underlying concerns or recurrent infections.
4. Monitor for any changes in neurological status due to head trauma.
DIFFERENTIAL DIAGNOSIS
The Differential Diagnosis includes, in no particular order and is not limited to:
1. Hematoma or concussion due to head trauma.
2. Cervical spine injury.
3. Broken clavicle or rib.
4. Contusions of the left side.
5. Postural hypotension-related fall.
6. Cardiac arrhythmia leading to fall.
7. Stroke or transient ischemic attack.
8. Medication side effects resulting in confusion or disorientation.
9. Hypoglycemia.
10. Syncope or presyncope.
REVIEW OLD RECORDS
The patient had tetanus shot December 2024
SUMMARY OF ENCOUNTER
The patient, an 84-year-old female, presented to the emergency department following a fall resulting in head trauma and left-sided pain. A CT scan and left shoulder X-ray revealed a common-knit left clavicle fracture, with no pneumothorax or rib
fracture evident. An X-ray of the left tib-fib showed no fracture. The decision was made to suture a wound on the left lower extremity using deep vicryl stitches and nylon stitches for the skin layer. Pain management with acetaminophen was provided
to the patient, as preferred. Despite attempts to mobilize the patient, she demonstrated poor ability to stand. It was noted that the patient lacks support at home as her son recently .
ASSESSMENT
The patient sustained a left clavicle fracture due to a fall. There is no evidence of pneumothorax, rib, or left tib-fib fracture. A wound on the left lower extremity was present and addressed during the visit.
EMERGENCY TREATMENTS ADMINISTERED
Acetaminophen for pain management. Sutures applied to the left lower extremity wound. Toradol was also given.
PLAN
Continue monitoring for changes in neurological status due to head trauma. Maintain pain management with acetaminophen. Considering the patients lack of home support, explore potential discharge plans with social work involvement or potential
facility admission for post-discharge care.
INDEPENDENT REVIEW OF LABS AND INTERPRETATION OF TESTS
- My independent interpretation of the Chest X-ray shows no pneumothorax or rib fracture.
- My independent interpretation of the Left shoulder X-ray reveals a comminuted left clavicle fracture.
- My independent interpretation of the Left tib-fib X-ray shows no fracture.
PROCEDURES
Suturing of left lower extremity wound with deep vicryl stitches and nylon stitches to the skin layer.
PATIENT EDUCATION AND COUNSELING
Educated the patient about the left clavicle fracture, emphasizing the need for limited movement and adherence to prescribed pain management. Discussed the importance of follow-up care and the potential need for support at home or in a care facility
due to her current lack of assistance.
FOLLOW-UP INSTRUCTIONS
Arrangements should be made for follow-up orthopedic consultation to reassess the clavicle injury and further evaluate any potential rehabilitation needs. Coordination with social services technician for potential post-discharge care assistance is also
recommended.
MEDICATION RECONCILIATION
Acetaminophen was administered for pain relief and recommended for ongoing management.
MEDICAL DECISION MAKING
- Number and Complexity of Problems Addressed: Chronic conditions affecting care include a history of uterine cancer. Differential diagnosis includes hematoma or concussion, cervical spine injury, and syncope.
- Data:
- Category 1: CT scan and multiple X-rays were ordered and independently interpreted.
- Category 3: Further management discussions involved consideration of patient discharge and coordination with social services technician given lack of home support.
- Risk: Consideration of Admission/Observation: Escalation of care including admission/observation was considered given the complexity and risk of the patients presenting complaint, exam findings, and her lack of social support. However, ultimately
I feel the patient is safe for outpatient management with close follow-up. Reasoning: Work-up reassuring, does not reveal any acute life/organ-threatening processes, patients symptoms are well controlled upon reevaluation, reexamination is
reassuring, vitals are stable, patient agreeable with discharge, reliable for follow-up.
DIAGNOSIS
- Left clavicle fracture (S42.022A)
- Left lower extremity laceration
- Fall down a flight of steps
- Lack of necessary support at home (Z60.2)
Past History
Past History
ED Past Medical History: HTN and Other (Diverticulitis, IBS, Macular degeneration)
ED Past Surgical History: None
Social History
Tobacco: Non-smoker
Alcohol: None
Personal:
Living: with family
Phy Exam
Physical Exam
Physical Exam:
See HPI
Course
Orders/Labs/Results
Orders:
Orders
08/17/25 02:31
CT Cervical Spine W/o Iv Contr Urgent
Comment:
Reason For Exam: trauma
CT Chest W/o Iv Contrast Urgent
Comment:
Reason For Exam: L posterior pain trauma
CR Leg Tibia/fibula Left 2 Vw Urgent
Comment:
Reason For Exam: trauma
CR Shoulder, Trauma - Left Urgent
Comment:
Reason For Exam: trauma pain
08/17/25 02:32
CT Head W/o Iv Contrast Urgent
Comment:
Reason For Exam: trauma
08/17/25 02:33
Acetaminophen [Tylenol] 1,000 mg PO NOW STA
08/17/25 02:38
Complete Blood Count/With Diff Urgent
Comprehensive Metabolic Panel Urgent
08/17/25 02:58
Sling Left-Treatment ONCE
08/17/25 04:07
Ketorolac [Toradol] 15 mg IV NOW STA
08/17/25 05:07
Admit/Transfer Patient As Directed
Co-Sign Provider:
Level of Care: Observation services
Assign to:: Medical/Surgical
Physician / Group: Marquez
Diagnosis: Fall, L Clavicle Fx, LLE Laceration
Code Status As Directed
Resuscitation Status: Full Code
PRN Pain Medication Management As Directed
May give lesser potent ordered pain med per pt: Yes
preference::
Protocol:: Medication orders for pain may be administered in a
manner that supports deferring to patient preference
when the pt is:
- Requesting an ordered lesser potent pain medication.
Least to most potent pain medications are defined
as: acetaminophen < NSAID < tramadol < opioids
(morphine, oxycodone, hydromorphone).
- Requesting a lesser dose of the same medication IF
ORDERED.
- Requesting a less intrusive route of administration
if both routes are prescribed by the provider (PO <
IV).
Abnormal Lab Results
08/17/25
02:38
WBC 12.2 H 10^3/uL
(4.8-10.8)
MCHC 32.3 L g/dL
(33.0-37.0)
Abs Immat Gran (auto) 0.1 H 10^3/uL
(0-0.05)
Absolute Neuts (auto) 9.9 H 10^3/uL
(1.4-6.5)
Immature Gran % 0.6 H %
(0-0.5)
Neutrophils % 80.8 H %
(42.2-75.2)
Lymphocytes % 12.9 L %
(20.5-51.1)
Sodium 133 L mmol/L
(135-145)
Chloride 97 L mmol/L
(98-107)
Glucose 124 H mg/dl
(70-99)
AST 42 H U/L
(14-36)
08/17/25 02:38
08/17/25 02:38
Vital Signs
Initial and Last Documented VS:
Initial Vital Signs
Temp Pulse Resp BP Pulse Ox
36.6 C 87 24 201/83 97
08/17/25 02:24 08/17/25 02:24 08/17/25 02:24 08/17/25 02:24 08/17/25 02:24
Last Documented Vital Signs
Temp Pulse Resp BP Pulse Ox
36.6 C 72 14 178/76 93
08/17/25 02:24 08/17/25 03:15 08/17/25 03:15 08/17/25 03:00 08/17/25 03:15
Procedures
Laceration Closure
Left Leg:
Status of Wound: clean
Size of Wound in cm: 2
Description of Wound Edges: ragged
Preparation: cleaned with saline and other (Chlorhexidine)
Anesthesia: 1% Lidocaine with epi
Revision/Debridement: routine- no revision
Wound exploration: explored to base- no FB
Type of Closure: layered closure and interrupted sutures
Skin Closure Material: 4-0 nylon and 4-0 vicryl
Number of sutures: 4
Additional information:
I placed two 4-0 Vicryl into the muscle layer and then two 4-0 Ethilon to close the skin
*Pulse Oximetry
SaO2: 97
Oxygen Mode of Delivery: Room air
Patient hypoxic: no
*Critical Care Note
Total Time (30-74mins, 75-104mins- exclusive of procedures): Not Applicable
ED Attending Note
-
Portions of this chart may have been created with voice recognition software.� Occasional wrong word or��sound alike� substitutions may have occurred due to the inherent limitations of voice recognition software.
Discharge Plan
Departure
Patient Disposition: Admit
Date of Disposition: 08/17/25
Time of Disposition: 04:30
Presentation/result/management discussed w/ accepting MD/DO: Hospitalist
Discharge Problem:
Fracture of left clavicle
Prescriptions:
No Action
multivitamin Tablet
1 tab PO BID
digestive enzymes Capsule
2 cap PO BID
hydrochlorothiazide 12.5 mg Tablet
12.5 mg PO DAILY
PreserVision AREDS-2 250-90-40-1 mg Capsule
1 tab PO BID
magnesium 250 mg Tablet
250 mg PO DAILY
carboxymethylcellulose sodium 1 % Drops, Liquid Gel
1 drp OPHTHALMIC (EYE) BID
calcium 26-vit D3-magnesium 15 167 mg calcium- 1.67 mcg-83 mg Capsule
2 cap PO BID
omega 8-njw-dkd-fish oil [Fish Oil] 1,200 (144-216) mg Capsule
2 cap PO DAILY
Probiotic 15 billion cell Capsule
1 cap PO DAILY
Referrals:
Aric Sheridan MD [Family Provider, Family Practice]
Interventions
Interventions:
*Risk Screen - Suicide Last Done: 08/17/25 02:33
*General Assessment Last Done: 08/17/25 02:33
*Neglect/Abuse Screening Last Done: 08/17/25 02:33
*ED- Fall Risk Assessment Last Done: 08/17/25 02:33
*ED COVID-19 Vaccine History Last Done: 08/17/25 02:33
*ED Influenza Vaccine History Last Done: 08/17/25 02:33
ED-Musculoskeletal Assessment Last Done: 08/17/25 02:33
ED- Neurological Assessment Last Done: 08/17/25 02:33
ED-Skin Assessment Last Done: 08/17/25 02:33
Discharge Date and Time
Print Language: JAPANESE
[2025-08-17] MEDS: TYLENOL 1000 MG PO ×4 (02:39→21:10)
[2025-08-17 02:57] LABS: Hematocrit 43.4 % (37.0-47.0); Hemoglobin 14.0 g/dL (12.0-16.0); Mean Corp Hgb Conc. 32.3 g/dL (33.0-37.0); Mean Corpuscular Volume 91.6 fL (81.0-99.0); Nucleated Red Blood Cells % 0 %; Platelet Count 210 10^3/uL (130-400); Red Cell Dist. Width 13.2 % (11.5-14.5)
[2025-08-17 03:18] LABS: ALT (SGPT) 27 U/L (0-35); AST (SGOT) 42 U/L (14-36); Albumin 4.3 g/dl (3.5-5.0); Alkaline Phosphatase 93 U/L (38-126); Blood Urea Nitrogen 16 mg/dl (7-17); Calcium 9.7 mg/dl (8.4-10.2); Carbon Dioxide 30 mmol/L (22-30); Chloride 97 mmol/L (98-107); Estimated Creatinine Clearance 52 ml/min; Glucose 124 mg/dl (70-99); Potassium 3.7 mmol/L (3.5-5.1); Sodium 133 mmol/L (135-145); Total Protein 7.2 g/dl (6.3-8.2); eGFR > 60.00
[2025-08-17] MEDS: TORADOL 15 MG IV (04:20)
--- NOTE | 2025-08-17 05:15 | HPS.HSE ---
Family Physician
-
Family Physician: Aric Sheridan
Chief Complaint
-
Fall
History of Present Illness
Patient is an 84y F with PMH significant for hypertension, macular degeneration and endometrial cancer who presents to ED complaining of fall at home. Patient states that she was up much later than usual and was very tired. She had turned her
ventura light out and could not see well due to her macular degeneration. She was on her way to bed and went to turn the ventura light back on, but lost her balance / misstepped and fell down the stairs. Patient fell down one flight of stairs, landing
at the bottom. She did not lose consciousness and was able to get up unassisted and call 911.
Patient noted severe pain in the L shoulder / upper chest and somewhat less severe pain in the LLE.
In the ED, she was noted to have laceration to the LLE which was closed in multilayer fashion.
Imaging studies revealed not evidence of intracranial bleeding / injury or cervical spine injury. Patient was noted to have comminuted fracture of the L clavicle.
Medical History
Past Medical History
Past Medical History: Reports Other
Additional Past Medical History:
Endometrial Cancer
Hypertension
Macular Degeneration
Past Surgical History: Reports Other
Additional Past Surgical History:
ZORAIDA / BSO
D&C
Social History
Tobacco: Non-smoker
Alcohol: None
Drug: None
Living: Alone
Family History
Family History: Not pertinent
Allergies / Home Medications
Allergies reflects when Allergies were last updated in [facility].
Home Medications with original date entered in [facility]
Allergy/Medication List:
Allergies
Allergy/AdvReac Type Severity Reaction Status Date / Time
Iodinated Contrast Media Allergy severe Verified 08/17/25 02:32
uncontrollable
diarrhea
for
several
days
Penicillins Allergy Unknown, Verified 08/17/25 02:32
as child
Home Medications
calcium 167 mg-vitamin D3 1.67 mcg-magnesium 83 mg capsule 2 cap PO BID Supplement 01/19/25
carboxymethylcellulose sodium 1 % eye liquid gel drops 1 drp ophthalmic (eye) BID Eye Condition 01/19/25
digestive enzymes 2 cap PO BID Supplement 01/19/25
hydrochlorothiazide 12.5 mg tablet 12.5 mg PO DAILY Blood Pressure 01/19/25
magnesium 250 mg tablet 250 mg PO DAILY Supplement 01/19/25
multivitamin 1 tab PO BID Supplement 01/19/25
vit C 250 mg-vit E 90 mg-zinc 40 mg-copper 1 pb-xwdzli-pjgwsq capsule (PreserVision AREDS-2) 1 tab PO BID Supplement 01/19/25
Lactobacillus acidophilus and rhamnosus 15 billion cell capsule (Probiotic) 1 cap PO DAILY Supplement 03/29/25
omega 0-gym-jau-fish oil 1,200 mg (144 mg-216 mg) capsule (Fish Oil) 2 cap PO DAILY Supplement 03/29/25
Review of Systems
-
History Source: Patient
A 12 point ROS was completed and negative except as noted: Yes
Constitutional: Denies Fever or Chills
Respiratory: Denies Cough or Trouble Breathing
Cardiac: Denies Chest Pain or Palpitations
Abdomen/GI: Denies Abdominal Pain, Nausea, Vomiting or Diarrhea
: Denies Dysuria, Frequency or Flank Pain
Musculoskeletal: Reports Joint Pain; Denies Edema
Neurological: Reports Headache; Denies Dizzy
Psych: Reports Depression and Anxiety
Physical Exam
Vital Signs
Vital Signs
Temp Pulse Resp BP Pulse Ox
97.8 F 72 14 178/76 93
08/17/25 02:24 08/17/25 03:15 08/17/25 03:15 08/17/25 03:00 08/17/25 03:15
Physical Exam
General: Other (84y F in mild distress due to pain and anxiety.)
HEENT: Moist mucous membranes and PERRLA
Respiratory: Clear; No Wheezes, Rales or Rhonchi
Cardiac: S1/S2 and Regular Rhythm; No Murmur
GI: Soft, Non Tender, Non Distended and Normal Bowel Sounds
Musculoskeletal: No Clubbing, No Cyanosis, No Edema and Other (LUE in sling. Step-off on palpation of the L clavicle. Pos tenderness.)
Skin: Other (LLE with dressing / cling in place at present. No strikethrough. No surrounding erythema or induration.)
Neuro: AO x 3
Laboratory Results
-
08/17/25 02:38
08/17/25 02:38
Laboratory Results
Total Bilirubin 1.0 mg/dl (0.2-1.3) 08/17/25 02:38
AST 42 U/L (14-36) H 08/17/25 02:38
ALT 27 U/L (0-35) 08/17/25 02:38
Alkaline Phosphatase 93 U/L (38-126) 08/17/25 02:38
Impression/Plan
-
A/P: Patient is an 84y F with PMH significant for endometrial cancer, hypertension and macular degeneration who presents to ED for evaluation after fall down the stairs this evening.
Fall Down Stairs
Left Clavicle Fracture
LLE Laceration
- Observe overnight for further evaluation and treatment.
- Maintain sling / NWB to the LUE.
- Pain control / supportive care.
- PT / OT evaluations.
- Wound Care eval for local care to LLE injury.
- Patient with limited local support system. Her son one month ago.
- CM eval for discharge planning.
Benign Hypertension
Mild Hyponatremia
- Hold HCTZ given mild hyponatremia.
- Low dose losartan for now and titrate as needed for BP control.
- Pain control as noted above.
History of Endometrial Cancer
- Stage I malignancy s/p ZORAIDA / BSO with Dr. Sylvester.
- Now followed at [facility] for surveillance. Not on any active treatments.
Macular Degeneration
- Significant vision impairment contributes to fall risk / difficulties with rehab and recovery.
- Follow-up with Ophtho as an outpatient.
DVT Prophylaxis: None for now given lower limb injury and recent trauma / bleeding risk.
Code Status: Full
--- NOTE | 2025-08-17 07:43 | PTCARENOTE ---
Received report from nightshift RN. Nightshift RN informed this RN that pt transferred to unit around 1800 via stretcher, pt pulled over to bed. Bed alarm in place and plugged in.
[2025-08-17] MEDS: COZAAR 25 MG PO (08:13)
[2025-08-17] MEDS: TORADOL 10 MG IV ×2 (10:17→16:38)
--- NOTE | 2025-08-17 10:33 | WOUNDNOTE ---
LEFT LOWER LEG LACERATION
--- NOTE | 2025-08-17 10:33 | WOUNDNOTE ---
LEFT UPPER LEG SKIN TEAR
--- NOTE | 2025-08-17 10:33 | WOUNDNOTE ---
[facility] RN NOTE: Reviewed chart and met with patient. Patient is s/p fall at home due to poor vision. She reports she was independent prior to fall. She has a laceration with sutures on her left lower leg and a skin tear on bilateral lower legs. Local
wound care provided as ordered. Patient declined turning due to fear of hurting her shoulder. Per patient and YANDEL Catalan, patient ambulated to bathroom this morning with assist of one. Per Alayna, sacrum intact. Heels blanchable and intact and off-loaded
with air cushion under calves. Patient is on a TYMR Accumax. Reminded patient to turn/off-load and change position while in bed. Patient agreed and said she would be able to move better after pain medication. Will confirm orders. YANDEL Catalan
updated. Will follow as needed.
--- NOTE | 2025-08-17 11:14 | CM ---
Met with pt bedside. IA completed. VILLEGAS provided and verbally reviewed due to her macular degeneration. Independent at home. Lives alone in barn-type home with 3 floors but she only uses the 1st and 2nd floors. Full BR on the second floor. NO hx of
HH.SNF,DME or home O2.
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 States that she does have sufficient food in the home and is able make her mortgage payment with the stock sell-off
Confirmed PCP, Rx, insurance, and NO drug coverage.
PCP: Aric Blanco
Rx: [facility] in [place]
Plan: DC home no needs. Will watch for discharge needs pending results of PT/OT eval
--- NOTE | 2025-08-17 11:55 | WOUNDNOTE ---
RIGHT LOWER LEG SKIN TEAR
[2025-08-17] MEDS: LIDOCAINE 4% PATCH 1 PATCH TOPICAL (12:43)
--- NOTE | 2025-08-17 14:47 | W.PN.HOSP.TC ---
Today's Communication/Plan
-
Assessment / Plan
Assessment / Plan
General: No Apparent Distress, Comfortable and Conversant
HEENT: NormoCephalic, Moist mucous membranes, Atraumatic
Respiratory: Clear and Non Labored Respirations
Cardiac: S1/S2 and Regular Rhythm; No Rub or Gallop
GI: Soft, Non Tender, Non Distended and Normal Bowel Sounds
Musculoskeletal: No Edema, left upper extremity in sling with TTP to clavicular region
Skin: Warm and dry
: NO [place]
Neuro: Awake, Alert, Nonfocal/grossly intact
Psych: Calm and cooperative
Ms. Richardson is an 84-year-old female with medical history of hypertension, endometrial cancer, macular degeneration who presented after a fall at home. She sustained a left clavicular fracture. Decision was made in the ED for left upper extremity
sling placement and outpatient orthopedic follow-up. She was apparently admitted for PT/OT evaluation and disposition assistance.
Comminuted displaced left clavicular fracture:
- Left upper extremity sling in place
- Pain control
- Discussed case with orthopedic, reasonable for nonweightbearing and outpatient follow-up
- PT/OT recommending SNF, will follow-up with case management regarding arrangements
Macular degeneration:
- Significant vision impairment especially at night which contributed to her fall and subsequent clavicular fracture
- Outpatient ophthalmology follow-up
Left anterior mauro laceration:
- Secondary to fall downstairs at home
- Sutured in the ED
- Continue local wound care
Hyponatremia:
- Mild with serum sodium 133
- Will monitor
- Renal function within normal limits
Hypertension:
- Holding home HCTZ due to mild hyponatremia
- Start low-dose losartan 25 mg daily, titrate as needed
Social issues:
- Patient has suffered significant emotional trauma recently with the of her son 1 month ago and the of her proximately 2 years ago
- Patient is very anxious about financial issues and worried about being able to make ends meet
- Appreciate case management guidance
DVT prophylaxis: None considering lower limb injury with bleeding risk
CODE STATUS: Full code
Anticipated Discharge: 24 - 48 hours
Subjective/Interval History
-
Date of Service: August 17, 2025
Patient was seen and examined at bedside this morning. No acute distress. Continues to have significant pain in her left shoulder after fall with clavicular fracture.
Objective Data
-
Labs:
Laboratory Results
08/17/25
02:38
WBC 12.2 H
Hgb 14.0
Hct 43.4
Plt Count 210
Sodium 133 L
Potassium 3.7
Chloride 97 L
Carbon Dioxide 30
BUN 16
Creatinine 0.8
Glucose 124 H
Calcium 9.7
Total Bilirubin 1.0
AST 42 H
ALT 27
Alkaline Phosphatase 93
Vital Signs:
Vital Signs
Temp Pulse Resp BP Pulse Ox
98.0 F 79 19 146/71 97
08/17/25 07:00 08/17/25 08:13 08/17/25 07:00 08/17/25 08:13 08/17/25 07:00
Review of Systems
-
History Source: Patient
All other systems: Reviewed and negative
Musculoskeletal: Reports Joint Pain (Left shoulder pain)
Physical Exam
-
General: No Apparent Distress
--- NOTE | 2025-08-17 16:33 | PTCARENOTE ---
Pt requested enzymes and probiotic to assist with bowel movement, MD made aware, probiotic ordered, see MAR.
[2025-08-17] MEDS: VISBIOME 1 CAP PO (16:34)
[2025-08-17] MEDS: REMOVE LIDOCAINE PATCH 1 PATCH REMOVE (21:02)
[2025-08-18] MEDS: TORADOL 10 MG IV ×3 (01:30→17:54)
[2025-08-18 06:00] VITALS: BMI 33.9
[2025-08-18 06:00] LABS: Hematocrit 34.2 % (37.0-47.0); Hemoglobin 11.3 g/dL (12.0-16.0); Mean Corp Hgb Conc. 33.0 g/dL (33.0-37.0); Mean Corpuscular Volume 88.8 fL (81.0-99.0); Platelet Count 175 10^3/uL (130-400); Red Cell Dist. Width 13.3 % (11.5-14.5)
[2025-08-18 06:28] LABS: Blood Urea Nitrogen 22 mg/dl (7-17); Calcium 8.5 mg/dl (8.4-10.2); Carbon Dioxide 28 mmol/L (22-30); Chloride 103 mmol/L (98-107); Estimated Creatinine Clearance 41 ml/min; Glucose 107 mg/dl (70-99); Potassium 3.9 mmol/L (3.5-5.1); Sodium 136 mmol/L (135-145); eGFR 55.90
[2025-08-18 07:00] VITALS: BP 143/70
--- NOTE | 2025-08-18 08:32 | PTCARENOTE ---
Pt requested eye drops for dry eyes, made aware, new order provided, see MAR.
[2025-08-18] MEDS: TYLENOL 1000 MG PO ×3 (08:47→21:45)
[2025-08-18] MEDS: LIDOCAINE 4% PATCH 1 PATCH TOPICAL (08:47)
[2025-08-18] MEDS: VISBIOME 1 CAP PO (08:47)
[2025-08-18] MEDS: REFRESH EYE DROPS (PF) 1 DROPS OPHTH (08:48)
[2025-08-18] MEDS: COZAAR 25 MG PO (08:58)
[2025-08-18] MEDS: ULTRAM 25 MG PO ×2 (10:26→16:26)
--- NOTE | 2025-08-18 12:26 | CM ---
Addendum entered by Kaitlyn Dejesus 08/18/25 14:23:
Pt has been accepted by [facility]. Pt will be seen tomorrow at home.
Original Note:
Pt admitted at OBS status. Therapy evals indicate SNF level at discharge. Pt does not have a recent qualifying stay for SNF and does not qualify for the [employer] Waiver. CM to speak with patient about discharge to home with VN for RN, PT, OT, and
SW.
--- NOTE | 2025-08-18 12:30 | W.DCSUMMARY ---
Addendum entered and electronically signed by Natanael Gale DO 08/19/25 15:04:
Patient did not actually leave until 08/19/2025 due to transportation issues.
Original Note:
Discharge Summary
Discharge Data
Date of Admission: 08/17/25
Date of Discharge: 08/18/25
Total time spent discharging patient (in min): 48
-
Pending Results: No
Hospital Course
Ms. Richardson is an 84-year-old female with medical history of hypertension, endometrial cancer, and macular degeneration who presented after a fall at home. She fell down the stairs after turning out the lights and becoming disoriented which she says
is a recurrent problem due to her macular degeneration. She sustained a left clavicular fracture and a left anterior mauro laceration. Her laceration was sutured in the emergency department. Chest imaging showed no evidence of pneumothorax or
hemothorax. Decision was made in the ED for left upper extremity sling placement and outpatient orthopedic follow-up. She was apparently admitted for PT/OT evaluation and disposition assistance. She did not want to go to an inpatient rehab
facility for physical therapy. She preferred discharge to home which was arranged. She was discharged to home with a prescription for a short course of tramadol for pain control. She had a mild hyponatremia with a serum sodium of 133. Her home
hydrochlorothiazide was switched to losartan for blood pressure control without the risk of hyponatremia. She was medically stable at time of hospital discharge.
General: No Apparent Distress, Comfortable and Conversant
HEENT: NormoCephalic, Moist mucous membranes, Atraumatic
Respiratory: Clear and Non Labored Respirations
Cardiac: S1/S2 and Regular Rhythm; No Rub or Gallop
GI: Soft, Non Tender, Non Distended and Normal Bowel Sounds
Musculoskeletal: No Edema, left upper extremity in sling with TTP to clavicular region
Skin: Warm and dry
: NO [place]
Neuro: Awake, Alert, Nonfocal/grossly intact
Psych: Anxious, cooperative
Discharge Plan
-
Patient Disposition: Home with Home Care
Discharge Diagnosis/Procedures: Left clavicular fracture
Activity Restrictions/Additional Instructions:
Wound Care Instructions Left and Right LE lacerations/skin tears- Clean with normal saline or soap and water. Apply adaptic and cover with silicone border foam. Change Q 48 hours and PRN if soiled.
You are admitted for evaluation of left clavicular fracture after a fall down your stairs at home. You have been placed in a left arm sling and should not bear weight with your left arm at all until you have followed up with a orthopedist for
further evaluation. You should continue taking scheduled extra strength Tylenol 3 times a day for the next few days for pain control. You will also be given a prescription for tramadol, which is a pain medication that you should take as needed.
Please be sure to take stool softeners to avoid constipation while on opiate pain medications. You will need to continue local wound care for your skin laceration on your leg which required sutures. Your home blood pressure medication called
hydrochlorothiazide was discontinued because of your blood work showing slightly low sodium levels. Instead you were started on a blood pressure medication called losartan. You should follow-up with your primary care physician for ongoing blood
pressure monitoring and medication adjustments as needed.
Referrals:
Aric Sheridan MD [Family Provider, [facility]]
Prescriptions:
New
lidocaine 4 % Adhesive Patch,Medicated
1 patch topical DAILY Qty: 20 0RF
tramadol 50 mg Tablet
25 mg PO Q6HPRN PRN (Reason: Moderate pain) Qty: 20 0RF
acetaminophen [Tylenol Extra Strength] 500 mg Tablet
1,000 mg PO TID 5 Days Qty: 30 0RF
losartan 25 mg Tablet
25 mg PO DAILY 30 Days Qty: 30 0RF
sennosides [Senokot] 8.6 mg tablet
8.6 mg PO DAILY Qty: 10 0RF
Rx Instructions:
Hold for soft stools
Continued
multivitamin Tablet
1 tab PO BID
digestive enzymes Capsule
2 cap PO BID
PreserVision AREDS-2 250-90-40-1 mg Capsule
1 tab PO BID
magnesium 250 mg Tablet
250 mg PO DAILY
carboxymethylcellulose sodium 1 % Drops, Liquid Gel
1 drp OPHTHALMIC (EYE) BID
calcium 26-vit D3-magnesium 15 167 mg calcium- 1.67 mcg-83 mg Capsule
2 cap PO BID
omega 7-jga-epq-fish oil [Fish Oil] 1,200 (144-216) mg Capsule
2 cap PO DAILY
Probiotic 15 billion cell Capsule
1 cap PO DAILY
Discontinued
hydrochlorothiazide 12.5 mg Tablet
12.5 mg PO DAILY
Discharge Orders:
Discharge Patient (As Directed); Ordered 08/18/25
Ordered By: Natanael Gale
Discharge Date and Time
Print Language: DJIBOUTIAN
--- NOTE | 2025-08-18 13:26 | VNURNOTE ---
Home Health Liaison met with patient and spouse at bedside to discuss [facility] nurse/therapy, visits, schedule and homebound status. Patient is agreeable and understands that visits at home will be 2-3 x per week to assess and teach medical
management.
Patient is aware that [facility] will contact them for start of care within a week after discharge from . Provided contact number for [facility].
[facility] referral completed in [facility].
--- NOTE | 2025-08-18 13:27 | VNURNOTE ---
Home Health Liaison met with patient at bedside to discuss [facility] nurse/therapy, visits, schedule and homebound status. Patient is agreeable and understands that visits at home will be 2-3 x per week to assess and teach medical management.
Patient is aware that [facility] will contact them for start of care within a week after discharge from . Provided contact number for [facility].
[facility] referral completed in [facility].
[2025-08-18 13:51] VITALS: BP 124/61; BP 131/63; PULSE 75; O2SAT 96
[2025-08-18 15:00] VITALS: BP 152/63
--- NOTE | 2025-08-18 15:53 | CM ---
CM met with Liset to discuss discharge plans. Pt will have a caregiver tomorrow to help her at home.
Plan: Discharge to home in AM, pt's grandson will drive her home.
[2025-08-18] MEDS: REMOVE LIDOCAINE PATCH 1 PATCH REMOVE (19:36)
[2025-08-18 23:00] VITALS: BP 128/56
[2025-08-19] MEDS: TORADOL 10 MG IV ×3 (00:21→15:06)
[2025-08-19 06:00] VITALS: BMI 34.5
[2025-08-19 08:34] VITALS: BP 130/61
[2025-08-19] MEDS: LIDOCAINE 4% PATCH 1 PATCH TOPICAL (08:40)
[2025-08-19] MEDS: VISBIOME 1 CAP PO (08:41)
[2025-08-19] MEDS: TYLENOL 1000 MG PO (08:41)
[2025-08-19] MEDS: COZAAR 25 MG PO (08:41)
[2025-08-19] MEDS: REFRESH EYE DROPS (PF) 1 DROPS OPHTH ×2 (08:53→15:08)
[2025-08-19 14:08] VITALS: BP 138/68
--- NOTE | 2025-08-19 14:29 | CM ---
Pt's plan to leave early today has been impacted by a family tragedy. Her 12 year old grandson was a passenger on an electric bike and was struck by a car. Per patient he was transferred to [facility] via [facility] and has not regained consciousness.
Emotional support provided.
Pt's plan is for discharge to home; refuses SNF due to needing to take care of things at home. Pt's nephew will be driving her home at discharge.
IMM reviewed verbally; Liset provided verbal consent, as she is having difficulty with her eyes.
Plan: Discharge to home; [facility] will follow in the community.
== END 2025-08-19 15:16 | disposition home health service (06) ==
LOC: 3 WEST ACU 05:49
PROVIDERS: ADMITTING PHYSICIAN Hospitalist; ATTENDING PHYSICIAN Internal Medicine; EMERGENCY PHYSICIAN Emergency Medicine; FAMILY PHYSICIAN Family Medicine
DX: S42.022A Displaced fracture of shaft of left clavicle, initial encounter for closed fracture (principal); S81.812A Laceration without foreign body, left lower leg, initial encounter; I10 Essential (primary) hypertension; H35.30 Unspecified macular degeneration; W10.9XXA Fall (on) (from) unspecified stairs and steps, initial encounter; E87.1 Hypo-osmolality and hyponatremia; Z59.869 Financial insecurity, unspecified; Z63.4 Disappearance and death of family member; Z79.899 Other long term (current) drug therapy; Z85.42 Personal history of malignant neoplasm of other parts of uterus; Z92.21 Personal history of antineoplastic chemotherapy
CPT/HCPCS: 12031; 70450; 71250; 72125; 73030; 73590; 80048; 80053; 85025; 85027; 87070; 96374; 97116; 97162; 97167; 97530; 99285; G0378